=== PATIENT | female | born 1960 | race Caucasian/White ===

== ENCOUNTER 2019-09-23 21:08 | Emergency (ER) | payer OTHER ==
[2019-09-23] MEDS ORDERED: Acetaminophen/HYDROcodone 325-5 MG Tab PO ONE (21:09)
[2019-09-23] MEDS ORDERED: Ibuprofen 800 MG Tab PO ONE ×2 (21:20→21:22)
--- NOTE | 2019-09-23 21:51 | EDM.PDOC ---
ED HPI GENERAL MEDICAL PROBLEM - General Stated Complaint: WRIST INJURY Time Seen by Provider: 09/23/19 21:15 Source of Information: Reports: Patient History Limitations: Reports: No Limitations - History of Present Illness INITIAL COMMENTS - FREE TEXT/NARRATIVE: Patient presented to the ED because of rt wrist pain. She tripped and fell while walking her dog and landed on her right wrist. She c/o 6/10 rt wrist pain. - Related Data Allergies Allergy/AdvReac Type Severity Reaction Status Date / Time No Known Allergies Allergy Verified 09/23/19 21:35 Home Meds: Home Meds Acetaminophen [Pain Relief] 325 mg PO ASDIRECTED PRN 06/25/14 [History] Adalimumab [Humira] 40 mg SQ ASDIRECTED 06/25/14 [History] Calcium Carb & Citrate/Vit D3 [Calcium + Vitamin D3 Caplet] 3 ea PO DAILY 06/25/14 [History] Cholecalciferol (Vitamin D3) [Vitamin D3] 1,000 unit PO DAILY 06/25/14 [History] Folic Acid 1 mg PO DAILY 06/25/14 [History] Losartan [Cozaar] 50 mg PO DAILY 06/25/14 [History] Methotrexate 0.5 ml SQ WEEKLY 06/25/14 [History] Mv,Calcium,Min/Iron/Folic/Vitk [Multi For Her Tablet] 1 each PO DAILY 06/25/14 [History] gemfibroziL [Lopid] 600 mg PO BIDAC 06/25/14 [History] Acetaminophen/HYDROcodone [[place] 325-5 MG] 1 tab PO Q4H PRN #10 tab 09/23/19 [Rx] Ibuprofen 800 mg PO TID PRN #30 tablet 09/23/19 [Rx] Review of Systems - Review of Systems Review Of Systems: See Below Constitutional: Reports: No Symptoms Eyes: Reports: No Symptoms Ears: Reports: No Symptoms Nose: Reports: No Symptoms Mouth/Throat: Reports: No Symptoms Respiratory: Reports: No Symptoms Cardiovascular: Reports: No Symptoms GI/Abdominal: Reports: No Symptoms Genitourinary: Reports: No Symptoms Musculoskeletal: Reports: Joint Pain Skin: Reports: No Symptoms ED EXAM, GENERAL - Physical Exam Exam: See Below Exam Limited By: No Limitations General Appearance: Alert, No Apparent Distress Eye Exam: Bilateral Eye: PERRL Ears: Normal External Exam, Normal Canal Nose: Normal Inspection, Normal Mucosa Throat/Mouth: Normal Inspection, Normal Lips, Normal Teeth Head: Atraumatic, Normocephalic Neck: Normal Inspection, Supple, Non-Tender, Full Range of Motion Respiratory/Chest: No Respiratory Distress, Lungs Clear, Normal Breath Sounds Cardiovascular: Normal Peripheral Pulses, Regular Rate, Rhythm, No Edema, No Gallop GI/Abdominal: Normal Bowel Sounds, Soft, Non-Tender, No Organomegaly Back Exam: Normal Inspection, Full Range of Motion Extremities: Joint Swelling, Arm Pain, Other (rt wist tenderness) Neurological: Alert, Oriented, CN II-XII Intact Psychiatric: Normal Affect Course - Vital Signs Text/Narrative:: xray rt wrist-rt radial fracture wrist splint was applied by ED physician Ibuprofen 800 mg po x1 Tylenol 1000 mg po x1 Last Recorded V/S: Last Vital Signs Temp 36.8 C 09/23/19 21:08 Pulse 100 09/23/19 21:42 Resp 16 09/23/19 21:42 BP 171/82 H 09/23/19 21:42 Pulse Ox 97 09/23/19 21:42 - Orders/Labs/Meds Meds: Medications Discontinued Medications Generic Name Dose Route Start Last Admin Trade Name Freq PRN Reason Stop Dose Admin Ibuprofen 800 mg 09/23/19 21:20 09/23/19 21:58 Motrin PO 09/23/19 21:21 800 mg ONETIME ONE Administration Ibuprofen 800 mg 09/23/19 21:22 09/23/19 23:02 Motrin PO 09/23/19 21:23 Not Given ONETIME ONE Departure - Departure Time of Disposition: 21:50 Disposition: Home, Self-Care 01 Condition: Good Clinical Impression: Radial fracture - Discharge Information Prescriptions: Ibuprofen 800 mg PO TID PRN #30 tablet PRN Reason: Pain Acetaminophen/HYDROcodone [[place] 325-5 MG] 1 tab PO Q4H PRN #10 tab PRN Reason: Pain Instructions: Radial Fracture Referrals: Emiliana Borrego NP [Primary Care Provider] - Forms: ED Department Discharge Additional Instructions: Please read discharge instructions on radial fracture Take ibuprofen 800 mg with tylenol 1000 mg every 8 hours as needed for pain [place] 5/325, 1 tablet every 4 hours as needed for severe pain Follow up with Ortho this week, call your clinic for referral
[2019-09-23 22:57] VITALS: BP 171/82; PULSE 100
--- NOTE | 2019-09-24 10:32 | CR ---
INDICATION: Fall, right wrist pain. RIGHT WRIST: Three views of the right wrist revealed an irregular transverse fracture through the distal radial metaphysis with posterior offset of the main distal fracture fragment of approximately 3 mm. The fracture site is comminuted. The radial joint surface is only slightly dorsally angulated. No other definite bone or joint abnormality was identified. MTDD
== END 2019-09-23 21:51 | disposition home or self-care (01) ==
LOC: FB.ED 21:08
DX: S52.501A Unspecified fracture of the lower end of right radius, initial encounter for closed fracture (principal); Z79.899 Other long term (current) drug therapy; W01.0XXA Fall on same level from slipping, tripping and stumbling without subsequent striking against object, initial encounter; Y93.01 Activity, walking, marching and hiking
CPT/HCPCS: 73110; 99283; A9270